=== PATIENT | male | born 1960 | race Caucasian/White ===

== ENCOUNTER 2023-04-05 08:20 | Outpatient (OUT) | payer BC, SELFPAY ==
[2023-04-05 08:49] LABS: Basophils Percent Auto 0.3 % (0.2-2.0); Eosinophils Absolute Auto 0.1 10^3/uL (0.0-0.7); Eosinophils Percent Auto 2.2 % (0.9-7.0); Hematocrit 44.4 % (42.0-54.0); Hemoglobin 14.2 g/dL (14.0-18.0); Immature Granulocytes Abs Auto 0.04 10^3/uL (0.00-0.03); Immature Granulocytes Pct Auto 0.7 % (0.0-0.5); Lymphocytes Absolute Auto 1.9 10^3/uL (1.2-3.8); Lymphocytes Percent Auto 32.2 % (20.5-60.0); Mean Corpuscular Hemoglobin 29.2 pg (25.9-34.0); Mean Corpuscular Volume 91.4 fL (80.0-94.0); Mean Platelet Volume 10.2 fL (9.5-13.5); Monocytes Absolute Auto 0.5 10^3/uL (0.3-0.8); Monocytes Percent Auto 8.9 % (1.7-12.0); Neutrophils Absolute Auto 3.3 10^3/uL (1.4-6.5); Neutrophils Percent Auto 55.7 % (43.0-75.0); Platelet Count 253 10^3/uL (150-450); Red Blood Count 4.86 10^6/uL (4.70-6.10); Red Cell Distribution Width 13.2 % (11.0-15.0); White Blood Count 5.8 10^3/uL (4.0-11.0)
[2023-04-05 09:03] LABS: Creatinine Urine Random 86.42 mg/dL (20.00-300.00); Microalbumin Urine Random <1.3 mg/dL (<=30.0)
[2023-04-05 09:38] LABS: Alanine Aminotransferase 23 U/L (16-63); Albumin Level 3.7 g/dL (3.4-5.0); Alkaline Phosphatase 68 U/L (46-116); Anion Gap 12.4; Aspartate Amino Transferase 15 U/L (15-37); BUN Creatinine Ratio 21.2; Bilirubin Total 0.4 mg/dL (0.2-1.0); Calcium 9.2 mg/dL (8.5-10.1); Carbon Dioxide 26.8 mmol/L (21.0-32.0); Chloride 103 mmol/L (98-107); Chol HDL Ratio 2.2; Cholesterol 142 mg/dL (<=200); Estimated GFR (African America >60 (>=60); Estimated GFR (Non-African Ame >60 (>=60); Globulin 3.6 g/dL; Glucose 140 mg/dL (74-106); HDL Cholesterol 66 mg/dL (40-60); Potassium 4.2 mmol/L (3.5-5.1); Sodium 138 mmol/L (136-145); Thyroid Stimulating Hormone 2.241 uIU/mL (0.358-3.740); Total Protein 7.3 g/dL (6.4-8.2); Triglycerides 35 mg/dL (<=150)
[2023-04-05 09:44] LABS: Prostate Specific Antigen Scrn 2.34 ng/mL (<=4.00)
== END 2023-04-05 08:21 | disposition home or self-care (01) ==
PROVIDERS: PCP Family Medicine; Visit Provider Family Medicine
DX: Z00.00 Encounter for general adult medical examination without abnormal findings (principal); E11.9 Type 2 diabetes mellitus without complications; Z12.5 Encounter for screening for malignant neoplasm of prostate
CPT/HCPCS: 36415; 80053; 80061; 82043; 82570; 84443; 85025; G0103

== ENCOUNTER 2024-04-16 08:21 | Outpatient (OUT) | payer BC, SELFPAY ==
--- OUTSIDE RECORDS SUMMARY | 2024-04-16 08:43 | XMS_ITS | CCD ---
Author Organization [facility] CliniSymi Care Team Providers Care Electrical Mechanic Name Role Phone Edenilson Edenison M Unavailable Unavailable Shai Champagne Unavailable Petznick DO, Martina Primary Care Provider Ihsan FALLON, Shai Unavailable [phone] Panchito Wilkinson MD Unavailable Shai Champagne MD Unavailable PETTHOM, DR JIMENES Attending Unavailable PETZNICK, DR JIMENES Consulting Unavailable PETZNICK, DR JIMENES Primary Care Unavailable PETZNICK, DR JIMENES Admitting Unavailable Petznick DO, Martina Primary Care Provider [phone] Shai Champagne MD Unavailable [phone] Panchito Wilkinson MD Unavailable PETZNICK, MARTINA Primary Care Unavailable AUGOSTINI, MARYBEL S Referring Unavailable PETZNICK, MARTINA Primary Care Unavailable AUGOSTINI, MARYBEL S Referring Unavailable AUGOSTINI, MARYBEL S Referring Unavailable PETZNICK, MARTINA Primary Care Unavailable PETZNICK, MARTINA Primary Care Unavailable AUGOSTINI, MARYBEL S Referring Unavailable Maribell BERMAN Attending Unavailable PETZNICK, MARTINA M Attending Unavailable PETZNICK, MARTINA M Attending Unavailable PETZNICK, MARTINA M Referring Unavailable PETZNICK, MARTINA M Referring Unavailable PETZNICK, MARTINA M Attending Unavailable Petznick, DO Martina Primary Care Provider Petthom, DO Martina Attending Provider MD Vicki Thurman Attending Provider MD Vicki Thurman Referring Provider Martina Eden Admitting Unavailable Petznick, Martina Primary Care Unavailable Petznick, Martina Attending Unavailable Vicki Thurman Attending Unavailable Vicki Thurman Referring Unavailable Martina Eden Primary Care Unavailable Vicki Thurman Admitting Unavailable Martina Eden DO Primary Care Provider VICKI THURMAN Attending Unavailable FAINAMARTINA CASTAÑEDA Primary Care Unavailable VICKI THURMAN Referring Unavailable VICKI THURMAN Attending Unavailable VICKI THURMAN Referring Unavailable MARTINA EDEN Primary Care Unavailable Martina Eden DO Unavailable [phone] Petthom Martina SEGURA Primary Care Provider [phone] Medications Current Medications Medication Drug Class(es) Dates Sig (Normalized) Sig (Original) apixaban 5 mg oral tablet (10 sources) Factor Xa Inhibitor Start: 02-28-2023 End: 01-12-2025 take 1 tablet by mouth in the morning apixaban (Eliquis) 5 MG tablet Indications: Paroxysmal atrial fibrillation (CMS/HCC) Take 1 tablet (5 mg) by mouth in the morning and 1 tablet (5 mg) before bedtime. 180 tablet 3 01/13/2024 01/12/2025 Active Start: 08-20-2021 take 1 tablet by ai th every twelve hours Eliquis 5 MG tablet Indications: Persistent atrial fibrillation TAKE 1 TABLET BY MOUTH EVERY 12 HOURS 180 tablet 2 08/20/2021 Active Start: 05-18-2021 take 1 tablet by ai th every twelve hours apixaban (Eliquis) 5 MG tablet Indications: Persistent atrial fibrillation Take 1 tablet by mouth every 12 hours. 180 tablet 0 05/18/2021 Active Start: 04-24-2017 take 1 tablet by ai th every twelve hours apixaban (ELIQUIS) 5 MG Tab tablet Indications: Persistent atrial fibrillation Take 1 tablet by mouth every 12 hours. 60 tablet 11 04/24/2017 Active Start: 01-20-2017 Apixaban (Eliq uis) 5 mg Tablet Active 1 PKG PO Twice daily January 20, 2017 12:00am Start: 01-20-2017 Apixaban (Eliq uis) 5 mg Tablet Active 1 PKG PO Daily January 20, 2017 12:00am ascorbic acid 500 mg chewabl e tablet (3 sources) Vitamin C ascorbic acid (V itamin C) 500 MG chewable tablet Chew 1 tablet 1 (one) time each day at the same time. Active take 1 tablet by mouth once neva y ascorbic acid 500 MG Tab take 500 mg by mouth daily. Active atorvastatin 40 mg oral tablet (11 sources) HMG-CoA Reductase Inhibitor Start: 01-20-2017 take 1 tablet by mouth in the morning atorvastatin (Lipitor) 40 MG tablet Indications: Hypercholesteremia (CMS/HCC) Take 1 tablet (40 mg) by mouth in the morning. 90 tablet 3 01/13/2024 Active Blood Glucose Monitoring Suppl (Contour Next Gen Monitor) w/Device kit (2 sources) Start: 08-23-2022 Blood Glucose Monitoring Suppl (Contour Next Gen Monitor) w/Device kit Apply 1 Device topically in the morning. 08/23/2022 Active empagliflozin 25 mg oral tablet (5 sources) Sodium-Glucose Cotransporter 2 Inhibitor Start: 07-29-2023 Jardiance 25 MG Indications: Diabetes mellitus without complication (CMS/HCC) TAKE 1 TABLET IN THE MORNING 90 tablet 3 07/29/2023 Active lisinopril 10 mg oral tablet (11 sources) Angiotensin Converting Enzyme Inhibitor Start: 01-20-2017 End: 01-12-2025 take 1 tablet by mouth once daily lisinopril 10 mg tablet Take 1 tablet (10 mg) by mouth once daily. 04/17/2023 Active take 10 mg by mouth once daily l isinopril 20 MG Tab take 10 mg by mouth daily. 0 Active metFORMIN hydrochloride 1000 mg oral tablet (11 sources) Biguanide Start: 01-20-2017 End: 02-14-2024 take 1 tablet by mouth twice daily metFORMIN (Glucophage) 1,000 mg tablet Take 1 tablet (1,000 mg) by mouth 2 times daily (morning and late afternoon). 02/14/2023 02/14/2024 Active Multiple Vitamin (multivitamin) capsule (2 sources) take 1 capsule by mouth once daily Multiple Vitamin (multivitamin) capsule Take 1 capsule by mouth Daily Active Ozempic 2 mg/dose (8 mg/3 mL) pen injector (2 sources) Start: 09-26-2022 inject 2 mg by subcutaneous injection every week Ozempic 2 mg/dose (8 mg/3 mL) pen injector Inject 2 mg under the skin once a week. 09/26/2022 Active pioglitazone 30 mg oral tablet (10 sources) Peroxisome Proliferator Receptor alpha Agonist, Peroxisome Proliferator Receptor gamma Agonist, Thiazolidinedione Start: 03-04-2023 End: 01-12-2025 take 1 tablet by mouth once daily pioglitazone (Actos) 30 MG tablet Indications: Diabetes mellitus without complication (CMS/HCC) Take 1 tablet (30 mg) by mouth Daily 90 tablet 3 01/13/2024 01/12/2025 Active take 1 tablet by mouth once neva y pioglitazone 30 MG Tab tablet Take 30 mg by mouth daily. 0 Active Pioglitazone HCl (ACTOS PO) take by mouth. Active 0.25 mg, 0.5 mg dose 1.5 ml semaglutide 1.34 mg/ml pen injector (5 sources) Semaglutide (OZEMPIC) 0.25 or 0.5 MG/DOSE Solution Pen-injector Inject under the skin once a week. 0 Active Semaglutide (Ozempic) 2 mg/dose (8 mg/3 mL) pen injector (1 source) Start: 2023 inject 2 mg by subcutaneous injection every week Semaglutide (Ozempic) 2 mg/dose (8 mg/3 mL) pen injector Active 2 MG SUBCUT every week December 05, 2023 12:00am Semaglutide, 2 MG/DOSE, (Ozempic, 2 MG/DOSE,) 8 MG/3ML solution pen-injector (2 sources) Start: 2023 End: 2024 Semaglutide, 2 MG/DOSE, (Ozempic, 2 MG/DOSE,) 8 MG/3ML solution pen-injector Indications: Diabetes mellitus without complication (CMS/HCC) Inject 2 mg under the skin every 7 (seven) days 9 mL 3 12/09/2023 12/08/2024 Active sildenafil 50 mg oral tablet (2 sources) Phosphodiesterase 5 Inhibitor Start: 2023 sildenafil (Viagra) 50 MG tablet Indications: Other male erectile dysfunction Take 1 tablet (50 mg) by mouth if needed for erectile dysfunction 30 tablet 1 05/29/2023 Active sotalol hydrochloride 80 mg oral tablet (3 sources) Antiarrhythmic Start: 2016 take 0.5 tablet by mouth twice daily sotalol 80 MG Tab tablet Take 0.5 tablets by mouth 2 times daily. 30 tablet 11 03/10/2017 Active Start: 01-20-2017 End: 12-05-2023 take 40 mg by mouth every twelve hours Sotalol Discontinued 40 MG PO Q12H January 20, 2017 12:00am December 05, 2023 11:32am Completed/Discontinued Medications Medication Drug Class(es) Dates Sig (Normalized) Sig (Original) canagliflozin 300 mg oral tablet (7 sources) Sodium-Glucose Cotransporter 2 Inhibitor Start: 01-20-2017 End: 12-05-2023 take 1 tablet by mouth once daily in the morning Canagliflozin (Invokana) 300 mg Tablet Discontinued 100 MG PO Every morning January 20, 2017 12:00am December 05, 2023 11:57am 3 ml liraglutide 6 mg/ml pen injector (3 sources) GLP-1 Receptor Agonist Start: 01-20-2017 End: 12-05-2023 Liraglutide (Victoza 2-Dewayne) 0.6 mg/0.1 mL (18 mg/3 mL) Pen Injector Discontinued 1 PKG SUBCUT Daily January 20, 2017 12:00am December 05, 2023 11:57am 24 hr metoprolol succinate 25 mg extended release oral tablet (7 sources) beta-Adrenergic Peterson Start: 11-14-2023 End: 03-26-2025 take 1 tablet by mouth once daily metoprolol succinate XL (Toprol-XL) 25 MG 24 hr tablet Indications: Sinus tachycardia Take 1 tablet (25 mg) by mouth Daily 90 tablet 3 03/09/2024 03/26/2024 Discontinued (Reorder) Problems Active Problems Problem Classification Problem Date Documented Da te Episodic/Chronic Cardiac dysrhythmias (20 sources) Persistent atrial fibrillation; Translations: [Atrial fibrillation] Onset: 02-21-2015 Resolved: 03-02-2023 04-20-2015 Chronic Cardiac dysrhythmias (3 sources) Tachycardia, unspecified; Translations: [Sinus tachycardia] Onset: 11-27-2023 03-26-2024 Episodic Diabetes mellitus without complication (10 sources) Diabetes mellitus; Translations: [Type 2 diabetes mellitus without complications] Onset: 02-21-2015 04-20-2015 Chronic Disorders of lipid metabolism (15 sources) Hyperlipidemia; Translations: [Hyperlipidemia, unspecified] Onset: 02-21-2015 04-20-2015 Chronic Essential hypertension (10 sources) Essential hypertension; Translations: [Essential (primary) hypertension] Onset: 03-02-2023 01-30-2024 Chronic Other aftercare (4 sources) Drug therapy finding; Translations: [alf (current) use of anticoagulants] Onset: 12-05-2023 01-30-2024 Episodic Other aftercare (2 sources) terminal gauger (current) use of anticoagulants; Translations: [alf (current) use of anticoagulants] Onset: 12-05-2023 Episodic Other nutritional; endocrine; and metabolic disorders (4 sources) Body mass index 30+ - obesity; Translations: [Body mass index (BMI) 35.0-35.9, adult] Onset: 12-05-2023 01-30-2024 Chronic Other nutritional; endocrine; and metabolic disorders (2 sources) Body mass index (BMI) 35.0-35.9, adult; Translations: [Body mass index (BMI) 35.0-35.9, adult] Onset: 12-05-2023 Chronic Other nutritional; endocrine; and metabolic disorders (4 sources) Severe obesity; Translations: [Class 2 severe obesity due to excess calories with serious comorbidity and body mass index (BMI) of 35.0 to 35.9 in adult ([facility])] Onset: 03-02-2023 03-29-2024 Chronic Other screening for suspected conditions (not mental disorders or infectious disease) (5 sources) Encounter for screening for malignant neoplasm of prostate; Translations: [Patient encounter status] Onset: 03-13-2022 04-02-2023 Episodic Residual codes; unclassified (4 sources) Obstructive sleep apnea syndrome; Translations: [Obstructive sleep apnea (adult) (pediatric)] Onset: 03-02-2023 03-26-2024 Chronic Residual codes; unclassified (4 sources) Never smoked any substance; Translations: [Other specified health status] Onset: 12-05-2023 01-30-2024 Episodic Residual codes; unclassified (2 sources) Other specified health status; Translations: [Other specified health status] Onset: 12-05-2023 Episodic Past or Other Problems Problem Classification Problem Date Documented Date Episodic/Chronic Other circulatory disease (5 sources) H/O: atrial fibrillation; Translations: [Other specified postprocedural states] Onset: 03-03-2015 04-20-2015 Episodic Results Test Name Value Interpretation Reference Range Facility HbA1c (Bld) [Mass fraction]o n 03-26-2024 Interpretation and review of laboratory results Normal [facility] - Hematology and Cell countson 03-26-2024 HbA1c (Bld) [Mass fraction] 7.4 % [facility] ECG 12 Leadon 01-30-2024 Normal sinus rhythm with borderline first-degree AV block [facility] Work Phone: Carbon dioxide, total [Moles /volume] in Serum or PlasmaOrdered By: Vicki Thurman on 12-05-2023 CO2 [Moles/Vol] 26.4 mmol/L Normal 21.0-31.0 [facility] Comment on above: Performed By: #### L YTES #### [facility] [address] [place] [address] [place] Chloride [Moles/volume] in S teresa or PlasmaOrdered By: Vicki Thurman on 12-05-2023 Chloride [Moles/Vol] 105 mmol/L Normal 98-107 [facility] Comment on above: Performed By: #### L YTES #### [facility] [address] [place] [address] ECG 12 Leadon 12-05-2023 Atrial flutter with 221 AV block [facility] Work Phone: ECG 12 lead ECGon 12-05-2023 ECG 12 lead ECG [facility] [place] [address] Electrocardiograph Report Signed Patient: Clark Spangler MR#: [id number] 8 : 1960 Acct:[id number] Age/Sex: 63 / M ADM Date: 12/05/23 Loc: Room: Type: [facility] Attending Dr: Vicki Thurman MD Ordering Provider: Vicki Thurman MD Date of Service: 12/05/23 ECG/ECG 12 lead ECG: Pre-cardioversion rhythm assessment Copies to: Test Reason : Blood Pressure : 123/82 mmHG Vent. Rate : 82 BPM Atrial Rate : 82 BPM P-R Int : 264 ms QRS Dur : 74 ms QT Int : 332 ms P-R-T Axes : 69 58 70 degrees QTcB Int : 387 ms Sinus rhythm with 1st degree AV block Otherwise normal ECG When compared with ECG of 05-Dec-2023 11:55, (Unconfirmed) AL interval has increased Vent. rate has decreased by 52 bpm Confirmed by Alfredo Chance ([id number]) on 12/06/2023 3:39:03 PM Referred By: Vicki Thurman Electronically Signed By: Alfredo Chance Transcribed By: MUS Signed By Alfredo Chance MD 12/06/23 2782 Normal [facility] ECG 12 lead ECG [facility] [place] [address] Electrocardiograph Report Signed Patient: Clark Spangler MR#: [id number] 8 : 1960 Acct:[id number] Age/Sex: 63 / M ADM Date: 11/27/23 Loc: Room: Type: [facility] Attending Dr: Martina Eden DO Ordering Provider: Vicki Thurman MD Date of Service: 12/05/23 ECG/ECG 12 lead ECG: Pre-cardioversion rhythm assessment Copies to: Test Reason : Blood Pressure : */* mmHG Vent. Rate : 134 BPM Atrial Rate : 134 BPM P-R Int : 104 ms QRS Dur : 68 ms QT Int : 290 ms P-R-T Axes : * 61 61 degrees QTcB Int : 433 ms Narrow complex tachycardia Abnormal ECG When compared with ECG of 27-Nov-2023 12:36, (Unconfirmed) No significant change was found Confirmed by Alfredo Chance ([id number]) on 12/06/2023 3:41:07 PM Referred By: Electronically Signed By: Alfredo Chance Transcribed By: MUS Signed By Alfredo Chance MD 12/06/23 4162 Normal [facility] Potassium [Moles/volume] in Serum or PlasmaOrdered By: Vicki Thurman on 12-05-2023 Potassium [Moles/Vol] 4.2 mmol/L Normal 3.5-5.1 [facility] Comment on above: Performed By: #### L CINDI #### [facility] [address] [place] [address] Serum or plasma anion gap de terminationOrdered By: Vicki Thurman on 12-05-2023 Anion gap [Moles/Vol] 11.8 mmol/L Normal 6.0-15.0 [facility] Comment on above: Result Comment: PERF ORMED BY: [place] [address] PATHOLOGIST [employer] ABRAHAN SPRINGER M.D. Performed By: #### L CINDI #### [facility] [address] [place] [address] Sodium [Moles/volume] in Ser um or PlasmaOrdered By: Vicki Thurman on 12-05-2023 Sodium [Moles/Vol] 139 mmol/L Normal 136-145 [facility] Comment on above: Performed By: #### L CINDI #### [facility] [address] [place] [address] Registrationon 02-11-2023 Registration [id number] #1.00TIFF Normal [facility] In office Testingon 02-11-20 23 In office Testing [id number] 1#1.00TIFF Normal [facility] In office Testingon 06-28-19 23 In office Testing [id number] 2#1.00CD:127 Normal [facility] DEVICE EVALUATION (SCANNED)o n 04-07-2022 [facility] Radiology Study observation (narrative) [facility] CBC AUTO DIFFon 03-09-2022 BASO # 0.0 103/ul Normal 0.0-0.1 [facility] Comment on above: Performed By: #### C BC #### [facility] [address] [address] [address] Vic Solo Basophils/100 WBC (Bld) 0.8 % Normal 0.2-2.0 [facility] Comment on above: Performed By: #### C BC #### [facility] [address] [place] [address] Dr. Vic Solo EO # 0.2 103/ul Normal 0.0-0.7 [facility] Comment on above: Performed By: #### C BC #### [facility] [address] [place] [address] Dr. Vic Solo Eosinophils/100 WBC (Bld) 3.7 % Normal 0.9-7.0 [facility] Comment on above: Performed By: #### C BC #### [facility] [address] [place] [address] Dr. iVc Solo Erythrocyte distribution width (RBC) [Ratio] 13.2 % Normal 11.0-15.0 [facility] Comment on above: Performed By: #### C BC #### [facility] [address] [place] [address] Dr. Vic Solo Hematocrit (Bld) [Volume fraction] 44.7 % Normal 42.0-54.0 [facility] Comment on above: Performed By: #### C BC #### [facility] [address] [place] [address] Dr. Vic Solo Hemoglobin (Bld) [Mass/Vol] 14.7 g/dL Normal 14.0-18.0 [facility] Comment on above: Performed By: #### C BC #### [facility] [address] [place] [address] Dr. Vic Solo IG # 0.02 10e3/ul Normal 0.00-0.03 [facility] Comment on above: Performed By: #### C BC #### [facility] [address] [place] [address] Dr. Vic Solo IG % 0.4 % Normal 0.0-0.5 [facility] Comment on above: Performed By: #### C BC #### [facility] [address] [place] [address] Dr. Vic Solo LYMPH # 1.9 103/ul Normal 1.2-3.8 [facility] Comment on above: Performed By: #### C BC #### [facility] [address] [place] [address] Dr. Vic Solo Lymphocytes/100 WBC (Bld) 36.8 % Normal 20.5-60.0 [facility] Comment on above: Performed By: #### C BC #### [facility] [address] [place] [address] Dr. Vic Solo MANUAL DIFF REQ NO Normal [facility] Comment on above: Performed By: #### C BC #### [facility] [address] [place] [address] Dr. Vic Solo MCH (RBC) [Entitic mass] 29.1 pg Normal 25.9-34.0 [facility] Comment on above: Performed By: #### C BC #### [facility] [address] [place] [address] Dr. Vic Solo MCHC (RBC) [Mass/Vol] 32.9 g/dL Normal 29.9-35.2 [facility] Comment on above: Performed By: #### C BC #### [facility] [address] [place] [address] Dr. Vic Solo MCV (RBC) [Entitic vol] 88.5 fL Normal 80.0-94.0 [facility] Comment on above: Performed By: #### C BC #### [facility] [address] [place] [address] Dr. Vic Solo MONO # 0.5 103/ul Normal 0.3-0.8 [facility] Comment on above: Performed By: #### C BC #### [facility] [address] [place] [address] Dr. Vic Solo Monocytes/100 WBC (Bld) 9.1 % Normal 1.7-12.0 [facility] Comment on above: Performed By: #### C BC #### [facility] [address] [place] [address] Dr. Vic Solo NEUT # 2.5 103/ul Normal 1.4-6.5 [facility] Comment on above: Performed By: #### C BC #### [facility] [address] [place] [address] Dr. Vic Solo Neutrophils/100 WBC (Bld) 49.2 % Normal 43.0-75.0 [facility] Comment on above: Performed By: #### C BC #### [facility] [address] [place] [address] Dr. Vic Solo Platelet mean volume (Bld) [Entitic vol] 10.2 fL Normal 9.5-13.5 [facility] Comment on above: Performed By: #### C BC #### [facility] [address] [place] [address] Dr. Vic Solo PLT 226 103/ul Normal 150-450 [facility] Comment on above: Performed By: #### C BC #### [facility] [address] [place] [address] Dr. Vic oSlo RBC 5.05 106/ul Normal 4.70-6.10 [facility] Comment on above: Performed By: #### C BC #### [facility] [address] [place] [address] Dr. Vic Solo WBC 5.1 103/ul Normal 4.0-11.0 [facility] Comment on above: Performed By: #### C BC #### [facility] [address] [place] [address] Dr. Vic Solo LIPID PROFILEon 03-09-2022 CHOL-HDL RATIO NORM SEE BELOW Normal [facility] Comment on above: Result Comment: 3.3 - 4.4 LOW RISK 4.4 - 7.1 AVERAGE RISK 7.1 - 11.0 MODERATE RISK >11.0 HIGH RISK Performed By: #### L IPID, CMP #### [facility] [address] [place] [address] Dr. Vic Solo Cholesterol [Mass/Vol] 152 mg/dL Normal <=200 [facility] Comment on above: Performed By: #### L IPID, CMP #### [facility] [address] [address] [address] Vic Solo Cholesterol in HDL [Mass/Vol] 74 mg/dL Critically high 40-60 [facility] Comment on above: Performed By: #### L IPID, CMP #### [facility] [address] [address] [address] Vic Solo Cholesterol in LDL [Mass/Vol] 71.4 mg/dL Normal [facility] Comment on above: Performed By: #### L IPID, CMP #### [facility] [address] [address] [address] Vic Solo Cholesterol.total/Choles terol in HDL [Mass ratio] 2.1 {ratio} Normal [facility] Comment on above: Performed By: #### L IPID, CMP #### [facility] [address] [place] [address] Dr. Vic Solo HDL NORMAL > or = 60 mg/dl - LOW CARDIOVASCULAR RISK <40 mg/dl - HIGH CARDIOVASCULAR RISK Normal [facility] Comment on above: Performed By: #### L IPID, CMP #### [facility] [address] [address] [address] Vic Solo LDL CALC NORMAL SEE BELOW Normal [facility] Comment on above: Result Comment: <100 mg/dl OPTIMAL 100 - 129 mg/dl NEAR OR ABOVE OPTIMAL 130 - 159 mg/dl BORDERLINE HIGH 160 - 189 mg/dl HIGH >190 mg/dl VERY HIGH Performed By: #### L IPID, CMP #### [facility] [address] [address] [address] Vic Solo Triglyceride [Mass/Vol] 33 mg/dL Normal <=150 T [facility] Comment on above: Performed By: #### L IPID, CMP #### [facility] [address] [place] [address] Dr. Vic Solo VLDL CALC 6.6 mg/dL Normal [facility] Comment on above: Performed By: #### L IPID, CMP #### [facility] [address] [address] [address] Vic Solo MICROALB CREAT RATIO RANDOMo n 11-19-2022 mALB <1.3 Normal <=30.0 [facility] Comment on above: Performed By: #### M CRR #### [facility] [address] [address] [address] Vic Solo MALB CR RATIO 14.0 mg/g Normal 0.0-29.9 [facility] Comment on above: Performed By: #### M CRR #### [facility] [address] [address] [address] Vic Solo MALB CR RATIO RANGE SEE BELOW Normal [facility] Comment on above: Result Comment: NO M ICROALBUMINURIA 0-29 MG/G CLINICAL MICROALBUMINURIA 30-300 MG/G MACROALBUMINURIA >300 MG/G Performed By: #### M CRR #### [facility] [address] [place] [address] Dr. Vic Solo URINE CREAT 93.11 mg/dL Normal 20.00-300.00 [facility] Comment on above: Performed By: #### M CRR #### [facility] [address] [place] [address] Dr. Vic Solo PROF 14(COMP METB)on 022 Albumin [Mass/Vol] 4.0 g/dL Normal 3.4-5.0 [facility] Comment on above: Performed By: #### L IPID, CMP #### [facility] [address] [place] [address] Dr. Vic Solo Albumin/Globulin [Mass ratio] 1.3 {ratio} Normal [facility] Comment on above: Performed By: #### L IPID, CMP #### [facility] [address] [place] [address] Dr. Vic Solo ALP [Catalytic activity/Vol] 66 U/L Normal 46-116 [facility] Comment on above: Performed By: #### L IPID, CMP #### [facility] [address] [place] [address] Dr. Vic Solo ALT [Catalytic activity/Vol] 17 U/L Normal 16-63 [facility] Comment on above: Performed By: #### L IPID, CMP #### [facility] [address] [address] [address] Vic Solo Anion gap [Moles/Vol] 9.1 mmol/L Normal [facility] Comment on above: Performed By: #### L IPID, CMP #### [facility] [address] [address] [address] Vic Solo AST [Catalytic activity/Vol] 13 U/L Critically low 15-37 [facility] Comment on above: Performed By: #### L IPID, CMP #### [facility] [address] [address] [address] Vic Solo Bilirubin [Mass/Vol] 0.4 mg/dL Normal 0.2-1.0 [facility] Comment on above: Performed By: #### L IPID, CMP #### [facility] [address] [address] [address] Vic Solo Calcium [Mass/Vol] 9.0 mg/dL Normal 8.5-10.1 [facility] Comment on above: Performed By: #### L IPID, CMP #### [facility] [address] [address] [address] Vic Solo Chloride [Moles/Vol] 104 mmol/L Normal 98-107 [facility] Comment on above: Performed By: #### L IPID, CMP #### [facility] [address] [address] [address] Vic Solo CO2 [Moles/Vol] 27.0 mmol/L Normal 21.0-32.0 [facility] Comment on above: Performed By: #### L IPID, CMP #### [facility] [address] [address] [address] Vic Solo Creatinine [Mass/Vol] 0.73 mg/dL Normal 0.70-1.30 [facility] Comment on above: Performed By: #### L IPID, CMP #### [facility] [address] [address] [address] Vic Solo EGFR-AF ESTONIAN >60 Normal >=60 [facility] Comment on above: Performed By: #### L IPID, CMP #### [facility] [address] [address] [address] Vic Solo EGFR-NON AF ESTONIAN >60 Normal >=60 [facility] Comment on above: Performed By: #### L IPID, CMP #### [facility] [address] [address] [address] Vic Solo Globulin (S) [Mass/Vol] 3.1 g/dL Normal [facility] Comment on above: Performed By: #### L IPID, CMP #### [facility] [address] [address] [address] Vic Solo Glucose [Mass/Vol] 136 mg/dL Critically high 74-106 [facility] Comment on above: Performed By: #### L IPID, CMP #### [facility] [address] [address] [address] Vic Solo Potassium [Moles/Vol] 4.1 mmol/L Normal 3.5-5.1 [facility] Comment on above: Performed By: #### L IPID, CMP #### [facility] [address] [address] [address] Vic Solo Protein [Mass/Vol] 7.1 g/dL Normal 6.4-8.2 [facility] Comment on above: Performed By: #### L IPID, CMP #### [facility] [address] [address] [address] Vic Solo Sodium [Moles/Vol] 136 mmol/L Normal 136-145 [facility] Comment on above: Performed By: #### L IPID, CMP #### [facility] [address] [address] [address] Vic Solo Urea nitrogen [Mass/Vol] 19.0 mg/dL Critically high 7.0-18 .0 [facility] Comment on above: Performed By: #### L IPID, CMP #### [facility] [address] [address] [address] Vic Solo Urea nitrogen/Creatinine [Mass ratio] 26.0 mg/mg Normal [facility] Comment on above: Performed By: #### L IPID, CMP #### [facility] [address] [place] [address] Dr. Vic Solo DEVICE EVALUATION (SCANNED)o n 01-07-2022 [facility] DEVICE EVALUATION (SCANNED)o n 07-08-2021 [facility] Vital Signs Date Time Vital Sign Value Performing Clinician Facility 03-26-2024 15:26-0500 Body height 190.5 cm Martina Petznick DO Work Phone: [facility] 03-26-2024 15:26-0500 Body mass index (BMI) [Ratio] 35.97 kg/m2 Martina Petznick DO Work Phone: [facility] 03-26-2024 15:26-0500 Body temperature 97.39 [degF] Martina Petznick DO Work Phone: [facility] 03-26-2024 15:26-0500 Body weight 130.54 kg Martina Petznick DO Work Phone: [facility] 03-26-2024 15:26-0500 Diastolic blood pressure 78 mm[Hg] Martina Petznick DO Work Phone: [facility] 03-26-2024 15:26-0500 Heart rate 85 /min Martina Petznick DO Work Phone: [facility] 03-26-2024 15:26-0500 SaO2% (BldA) [Mass fraction] 96 % Martina Petznick DO Work Phone: [facility] 03-26-2024 15:26-0500 Systolic blood pressure 122 mm[Hg] Martina Petznick DO Work Phone: [facility] 01-30-2024 10:14-0400 Diastolic blood pressure 78 mm[Hg] Vicki Thurman MD Work Phone: [facility] 01-30-2024 10:14-0400 Systolic blood pressure 120 mm[Hg] Vicki Thurman MD Work Phone: [facility] 01-30-2024 09:43-0400 Body height 190.5 cm Vicki Thurman MD Work Phone: [facility] 01-30-2024 09:43-0400 Body mass index (BMI) [Ratio] 35.87 kg/m2 Vicki Thurman MD Work Phone: [facility] 01-30-2024 09:43-0400 Body weight 130.18 kg Vicki Thurman MD Work Phone: [facility] 01-30-2024 09:43-0400 Heart rate 81 /min Vicki Thurman MD Work Phone: [facility] 12-05-2023 12:18-0400 SaO2% (BldA) [Mass fraction] 98 % DO Martina Petznick Work Phone: [facility] 12-05-2023 11:58-0400 SaO2% (BldA) [Mass fraction] 98 % DO Martina Petznick Work Phone: [facility] 12-05-2023 09:50-0400 Body height 190.5 cm Vicki Thurman MD Work Phone: [facility] 12-05-2023 09:50-0400 Body mass index (BMI) [Ratio] 35.87 kg/m2 Vicki Thurman MD Work Phone: [facility] 12-05-2023 09:50-0400 Body weight 130.18 kg Vicki Thurman MD Work Phone: [facility] 12-05-2023 09:50-0400 Diastolic blood pressure 80 mm[Hg] Vicki Thurman MD Work Phone: [facility] 12-05-2023 09:50-0400 Heart rate 135 /min Vicki Thurman MD Work Phone: [facility] 12-05-2023 09:50-0400 Systolic blood pressure 118 mm[Hg] Vicki Thurman MD Work Phone: [facility] Encounters Encounter Date Encounter Type Care Provider Facility Start: 03-26-2024 End: 03-26-2024 Office outpatient visit 25 minutes Martina Eden DO Work Phone: [facility] Comment on above: Essential hypertensi on (CMS/HCC) (Primary Dx); Type 2 diabetes mellitus without complication, without long-term current use of insulin (CMS/HCC); Sinus tachycardia; Paroxysmal atrial fibrillation (CMS/HCC); CRESCENCIO (obstructive sleep apnea); Pure hypercholesterolemia (CMS/HCC); Preventative health care; Screening for prostate cancer; Class 2 severe obesity due to excess calories with serious comorbidity and body mass index (BMI) of 35.0 to 35.9 in adult (CMS/HCC) Start: 03-26-2024 End: 03-26-2024 Patient encounter status Martina Eden DO Work Phone: [facility] Start: 01-30-2024 End: 01-30-2024 Office outpatient visit 25 minutes Vicki Thurman MD Work Phone: [facility] Comment on above: Atrial flutter, unsp ecified type (Multi); Hyperlipidemia, unspecified hyperlipidemia type; Essential hypertension; Anticoagulated; BMI 35.0-35.9,adult; Never smoked any substance Start: 01-30-2024 End: 01-30-2024 ambulatory [facility] Start: 12-05-2023 End: 12-05-2023 Admission to same day surgery center DO Martina Eden Work Phone: [facility] Work Phone: Start: 12-05-2023 End: 12-05-2023 ambulatory DO Martina Eden Work Phone: [facility] Work Phone: Start: 12-05-2023 End: 12-05-2023 Office consultation new/estab patient 80 min Vicki Thurman MD Work Phone: [facility] Comment on above: Atrial flutter, unsp ecified type (Multi); Essential hypertension; Hyperlipidemia, unspecified hyperlipidemia type; Anticoagulated; BMI 35.0-35.9,adult; Never smoked any substance Start: 12-05-2023 End: 12-05-2023 ambulatory [facility] Start: 11-27-2023 End: 11-27-2023 Patient encounter procedure DO Martina Petthom Work Phone: [facility] Work Phone: Start: 11-27-2023 End: 11-27-2023 ambulatory DO Martina Eden Work Phone: [facility] Work Phone: Start: 11-14-2023 End: 11-14-2023 ambulatory MARTINA Engel PETSAULOICK Not Available Start: 11-14-2023 End: 11-14-2023 ambulatory MARTINA M PETZNICK Not Available Start: 09-18-2023 End: 09-18-2023 ambulatory MARTINA M PETZNICK Not Available Start: 02-28-2023 End: 02-28-2023 ambulatory MARTINA M PETZNICK Not Available Start: 02-10-2023 End: 02-11-2023 ambulatory Maribell BERMAN [facility] Start: 06-18-2022 ambulatory MARTINA EDEN Facili ty:[facility] Start: 04-07-2022 ambulatory MARTINA EDEN Facili ty:[facility] Start: 04-07-2022 End: 04-07-2022 Subsequent hospital visit by physician [facility] Check Work Phone: [facility] Start: 03-13-2022 Encounter for genera l adult medical examination without abnormal findings DR MARTINA EDEN [facility] Start: 03-09-2022 End: 03-10-[address] MARTINA EDEN Facility: Start: 03-09-2022 End: 11-20-2022 Encounter for general adult medical examination without abnormal findings DR MARTINA EDEN Facility:[facility] Start: 01-07-2022 End: 01-07-2022 Subsequent hospital visit by physician [facility] Remote Device Check Work Phone: [facility] Comment on above: No Show Start: 01-07-2022 ambulatory MARTINA EDEN Facili ty:[facility] Start: 10-08-2021 ambulatory MARYBEL MCKENNA Facil ity:[facility] Start: 07-08-2021 End: 07-08-2021 Subsequent hospital visit by physician [facility] Remote Device Check Work Phone: [facility] Comment on above: No Show Start: 07-08-2021 End: 07-08-2021 Subsequent hospital visit by physician Marybel Mckenna MD Work Phone: [facility] Start: 03-08-2018 End: 03-08-2018 Patient encounter procedure [facility] Work Phone: [facility] Comment on above: No Show Procedures Date Procedure Procedure Detail Performing Clinician Start: 03-26-2024 Hemoglobin glycosyla esther a1c Martina Eden DO Work Phone: Start: 01-30-2024 Ecg routine ecg w/le ast 12 lds w/i&r Vicki Thurman MD Work Phone: Start: 12-05-2023 Ecg routine ecg w/le ast 12 lds w/i&r Vicki Thurman MD Work Phone: Start: 04-07-2022 DEVICE EVALUATION Other Other Start: 03-09-[address] YRN EDEN Comment on above: Performed By: #### P [facility] #### [facility] [address] [place] [address] Dr. Vic Solo Start: 01-07-2022 DEVICE EVALUATION Other Other Start: 07-08-2021 DEVICE EVALUATION Other Other Start: 03-08-2018 End: 03-08-2018 DEVICE EVALUATION Martina Eden Work Phone: Start: 01-20-2017 Colonoscopy Vicki sheldon MD Work Phone: Plan of Treatment Date Care Activity Detail Author Start: 01-20-2027 Screening for malign ant neoplasm of colon [facility] Start: 09-17-2024 End: 09-17-2024 Patient encounter procedure 09/17/2024 10:20 AM EDT Office Visit [place] [address] [place] [phone] Vicki Thurman MD [address] [facility] [address] [place] [address] [facility] Start: 07-30-2024 End: 07-30-2024 Patient encounter procedure 07/30/2024 3:30 PM EDT Office Visit [facility] [address] [place] [address] Martina Eden DO [address] [place] [address] [facility] Start: 06-24-2024 Hemoglobin A1c measurement Diabetes: Hemoglobin A1C [facility] Start: 04-05-2024 Urine screening for protein Diabetes: Urine Protein Screening [facility] Start: 03-26-2024 End: 03-26-2025 Prostate specific Ag [Mass/volume] in Serum or Plasma PSA Lab Routine Screening for prostate cancer Expected: 03/26/2024 (Approximate), Expires: 03/26/2025 [facility] Comment on above: Expected: 03/26/2024 (Approximate), Expires: 03/26/2025 Start: 12-21-2023 COVID-19 Vaccine ( season) COVID-19 Vaccine () [facility] Start: 12-21-2023 Influenza vaccination Influenza Vacc ine (#1) [facility] Start: 12-05-2023 [facility] Start: 12-05-2023 End: 12-04-2025 Cardioversion External Cardioversion External Cardiac Services Routine Atrial flutter, unspecified type (Multi) Expected: 12/05/2023 (Approximate), Expires: 12/04/2025 [facility] Work Phone: Comment on above: Expected: 12/05/2023 (Approximate), Expires: 12/04/2025 Start: 04-17-2023 Glaucoma screening Diabetes: R etinopathy Screening [facility] Start: 12-20-2022 COVID-19 Vaccine ( season) COVID-19 Vaccine ( season) [facility] Start: 2022 RSV patient s and/or patients aged 60+ years (1 - 1-dose 60+ series) RSV patients and/or patients aged 60+ years (1 - 1-dose 60+ series) [facility] Start: 12-20-2021 Influenza vaccination [facility] Start: 07-30-2021 COVID-19 VACCINE (3 - Booster for Joanna series) COVID-19 VACCINE (3 - Booster for Joanna series) [facility] Start: 05-26-2021 COVID-19 VACCINE (3 - Booster for Joanna series) COVID-19 VACCINE (3 - Booster for Joanna series) [facility] Start: 12-20-2020 Influenza vaccination INFLUENZA VACC INE (#1) [facility] Start: 07-19-2018 End: 07-19-2018 Ambulatory 07/19/2018 Appointment Cardiovascular Medicine Marybel Mckenna MD [address] [place] [phone] [facility] Start: 06-14-2018 End: 06-14-2018 Ambulatory 06/14/2018 Appointment Cardiovascular Marybel Guajardo MD [address] [place] [phone] [facility] Start: 05-10-2018 End: 05-10-2018 Ambulatory 05/10/2018 Appointment Cardiovascular Marybel Guajardo MD [address] [place] [address] [facility] Start: 04-05-2018 End: 04-05-2018 Ambulatory 04/05/2018 Appointment Cardiovascular Medicine Marybel Mckenna MD [address] [place] [address] [facility] Start: 12-20-2017 Influenza vaccination INFLUENZA VACC INE (#1) [facility] Work Phone: Start: 07-26-2015 PNEUMOCOCCAL VACCINE SERIES (2 - PCV) PNEUMOCOCCAL VACCINE SERIES (2 - PCV) [facility] Start: 2012 Prostate specific antigen measurement PROSTATE CANCER SCREENING DISCUSSION [facility] Start: 2012 Protein mass conc COLON CANCER SCREENING DISCUSSION [facility] Work Phone: Start: 2012 Zoster vaccine hzv l geo for subcutaneous use ZOSTER (SHINGLES) VACCINE (1 of 2) [facility] Start: 2007 Colonoscopy COLORECTAL CAN CER SCREENING DISCUSSION [facility] Start: 2007 Screening for malign ant neoplasm of colon COLORECTAL CANCER SCREENING DISCUSSION [facility] Start: 2002 Fasting lipid profile LIPID SCREENIN G [facility] Start: 2002 Lipid panel LIPID SCREENING [facility] Start: 1984 DTaP/Tdap/Td Vaccine s (1 - Tdap) DTaP/Tdap/Td Vaccines (1 - Tdap) [facility] Start: 1981 Third diphtheria, tetanus and acellular pertussis (DTaP) vaccination TDAP (ADULT) [facility] Start: 1980 Diabetes mellitus screening Diabetes Screening [facility] Start: 1980 Hepatitis C screening Hepatitis C Sc [facility] Start: 1980 Tetanus vaccination TETANUS [facility] Start: 1977 HIV screening HIV SCREENING DISCUSSI ON [facility] Start: 1975 HIV screening HIV SCREENING DISCUSSI ON [facility] Work Phone: Start: 1968 PNEUMOCOCCAL VACCINE SERIES (1 - PCV) PNEUMOCOCCAL VACCINE SERIES (1 - PCV) [facility] Start: 1968 PNEUMOCOCCAL VACCINE SERIES (1 of 2 - PPSV23) PNEUMOCOCCAL VACCINE SERIES (1 of 2 - PPSV23) [facility] Start: 1963 MMR Vaccines (1 of 1 - Standard series) MMR Vaccines (1 of 1 - Standard series) [facility] Start: 1962 Hepatitis C antibody , confirmatory test HEPATITIS C VIRUS SCREENING [facility] Start: 1962 Hepatitis C screening HEPATITI S C VIRUS SCREENING [facility] Start: 1962 HIV screening HIV Screening [facility] Start: 1962 Lipid panel Lipid Panel [facility] Start: 1962 Screening for malign ant neoplasm of colon [facility] Start: 1962 Tetanus vaccination TETANUS [facility] Start: 1962 Yearly Adult Physical Yearly Adult P hysical [facility] CBC W Auto Different ial panel - Blood CBC and differential Lab Routine Preventative health care Ordered: 03/26/2024 [facility] Comment on above: Ordered: 03/26/2024 Comprehensive metabo lic 2000 panel - Serum or Plasma Comprehensive metabolic panel Lab Routine Preventative health care Ordered: 03/26/2024 [facility] Work Phone: Comment on above: Ordered: 03/26/2024 DEVICE EVALUATION DEVICE EVALUAT ION Routine 03/08/2018 12:09 PM EST [facility] Work Phone: Lipid 1996 panel - Serum or Plasma Lipid panel Lab Routine Preventative health care Ordered: 03/26/2024 [facility] Comment on above: Ordered: 03/26/2024 Microalbumin/Creatin ine panel in random Urine Microalbumin / creatinine urine ratio Lab Routine Type 2 diabetes mellitus without complication, without long-term current use of insulin (CMS/HCC) Ordered: 03/26/2024 [facility] Comment on above: Ordered: 03/26/2024 Patient Education Know your [facility] Work Phone: Thyrotropin [Units/volume] in Serum or Plasma TSH Lab Routine Preventative health care Ordered: 03/26/2024 [facility] Comment on above: Ordered: 03/26/2024 Immunizations Immunization Date Immunization Notes Care Provider Marcos jaime 01-19-2022 Influenza, injectabl e, Madin Alexander Canine Kidney, preservative free, quadrivalent Martina Petznick DO Work Phone: [facility] 01-19-2022 zoster vaccine recombinant Martina Petznick DO Work Phone: [facility] 01-19-2022 influenza virus vacc ine, unspecified formulation [facility] Work Phone: [facility] 01-19-2022 zoster vaccine, unspecified formulation [facility] Work Phone: [facility] 11-13-2021 zoster vaccine recombinant Martina Petznick DO Work Phone: [facility] 02-22-2019 influenza, injectabl e, madin alexander canine kidney, preservative free Martina Petznick DO Work Phone: [facility] 02-22-2019 influenza virus vacc ine, unspecified formulation [facility] Work Phone: [facility] 03-03-2015 influenza, seasonal, injectable; Translations: [INFLUENZA VACCINE, TRIVALENT] [facility] Remote Device Check [facility] 03-03-2015 influenza virus vacc ine, unspecified formulation [facility] Remote Device Check [facility] Work Phone: 02-19-2015 seasonal influenza, intradermal, preservative free Martina Petznick DO Work Phone: [facility] 07-25-2014 pneumococcal polysaccharide vaccine, 23 valent Martina Petznick DO Work Phone: [facility] Payers Date Payer Category Payer Self-pay [id number] 2022 [facility] [id number] 2022 Unknown [id number] 2021 Unknown [id number] 1962 Unknown [id number] [id number]. 593 1962 Unknown [id number] [id number]. 594 1962 Unknown [id number] 2.16.840.1.451102.3.579.2. 594 1962 Unknown [id number] 2.16.840.1.312123.3.579.2. 594 1962 Unknown [id number] 2.16.840.1.345473.3.579.2. 594 1962 Unknown [id number] 2.16.840.1.520033.3.579.2. 1259 1962 Unknown [id number] 2.16.840.1.530191.3.579.2. 1259 1962 Unknown [id number] 2.16.840.1.800156.3.579.2. 1259 1962 Unknown [id number] 2.16.840.1.793860.3.579.2. 1259 1962 Unknown [id number] 2..840.1.537270.3.579.2. 1244 1962 Unknown [id number] 2.16.840.1.370858.3.579.2. 1244 1959 Unknown [id number] Unknown [facility] [id number] Unknown [facility] [employer] [id number] Unknown [id number]. 531 Unknown [id number]. 531 Social History Date Type Detail Facility Start: 06-20-2015 End: 12-05-2023 Tobacco smoking status NHIS Never smoker [facility] Work Phone: Start: 1960 Sex Assigned At Not on file [facility] Work Phone: Start: 06-20-2015 End: 12-05-2023 Alcohol intake Current drinker of alcohol (finding) [facility] Start: 06-20-2015 End: 12-05-2023 Alcohol intake [facility] Start: 1960 Sex Assigned At Male [facility] Start: 02-20-2023 End: 12-05-2023 Tobacco use and exposure Smokeless tobacco non-user [facility] Work Phone: Start: 09-17-2023 End: 12-05-2023 Tobacco use panel [facility] Start: 11-25-2023 End: 01-30-2024 Exposure to SARS-CoV-2 (event) Not sure [facility] Do you belong to any clubs or organizations such as zoroastrianism groups, unions, fraternal or athletic groups, or school groups? Yes [facility] Are you now , , , , never or living with a partner? [facility] How often to you hav e a drink containing alcohol? 2-4 times a month [facility] How many standard dr inks containing alcohol do you have on a typical day? 5 or 6 [facility] How often do you hav e 6 or more drinks on 1 occasion? Never [facility] How hard is it for y ou to pay for the very basics like food, housing, medical care, and heating Not hard at all [facility] Do you feel stress - tense, restless, nervous, or anxious, or unable to sleep at night because your mind is troubled all the time - these days [OSQ] Not at all [facility] (I/We) worried wheth er (my/our) food would run out before (I/we) got money to buy more. Never true [facility] In the past 12 month s, was there a time when you were not able to pay the mortgage or rent on time? No [facility] Start: 02-20-2023 Alcohol Comment 2-4 times a month NO [facility] Medical Equipment Procedure Code Equipment Code Equipment Origin al Text Equipment Identifier Dates Icm Reve[employer]q - [id number] Start: 03-03-2015 [employer]q - [id number], [id number] FDA Start: 08-20-2018 1 each by Other route if needed. Start: 08-23-2022 History of Present illness Narrative 03-29-2024 Martina Eden, DO - 03/29/2024 12:42 PM Garry Eden, DO - 03/26/2024 3:30 PM EST Note Date & Type Note Facility 03-29-2024 History of Presen t illness Narrative Associated Problem(s): Type 2 diabetes mellitus without complication (CMS/[facility]) During the appointment today all pertinent labs, imaging, health maintenance, and glucose readings were reviewed. Encouraged to check blood glucose throughout the day with some fasting and some PP readings. They are to bring their glucose meter/cgm in to all appointments. All of the patients questions, treatment options, and current care plan and goals were discussed. A copy of this along with pertinent instructions were given to the patient at the end of the appointment. The patient voices understanding of all of this and is to call in between appointments if they have any problems or questions. Clark Spangler is doing very well and encouraged on this. , Will stay on current medications. Images from the original note were not included. Clark Spangler is a 63 y.o. male presents with chief complaint of Diabetes HPI: Diabetes Mellitus Follow-up: Clark Spangler is here for follow-up evaluation of diabetes mellitus. The initial diagnosis of diabetes was made in 2005 Diabetes complications: Glaucoma, cataracts He has been checking his blood glucose 3-4 times a week- mostly in the morning on occasion afternoon. Last A1c: 7.0 (09/18/23) Last eye exam: 04/17/2021- 2023 [facility] [place] Current concerns include: Bg have been higher than normal, having more sandwiches in the middle of the day, and weather has been too cold to exercise. Forgot meter Mornings: 125-140 Afternoon: 150-155 Diet: limiting carbs and sweets Drinks: water, black coffee, diet pop- rare Exercise: None; just work Hypoglycemia: None Diabetes Pertinent negatives for diabetes include no chest pain, no fatigue, no polydipsia, no polyphagia and no polyuria. SUBJECTIVE: PROBLEM LIST SOCIAL ALLERGIES: Patient Active Problem List Diagnosis Essential hypertension (CMS/HCC) CRESCENCIO (obstructive sleep apnea) Paroxysmal atrial fibrillation (CMS/HCC) Pure hypercholesterolemia (CMS/HCC) Class 2 severe obesity due to excess calories with serious comorbidity and body mass index (BMI) of 35.0 to 35.9 in adult (CMS/HCC) Type 2 diabetes mellitus without complication (CMS/HCC) Social History Tobacco Use Smoking status: Never Smokeless tobacco: Never Substance Use Topics Alcohol use: Yes Comment: 2-4 times a month Drug use: Never No Known Allergies Synopsis SmartLink 03/26/2024 15:36 01/13/2024 00:00 Antidiabetic medications Empagliflozin 25 mg q AM PO 25 mg q AM PO metFORMIN HCl TAKE 1 TABLET IN THE MORNING AND 1 TABLET IN THE EVENING WITH MEALS (1000 MG TABS) TAKE 1 TABLET IN THE MORNING AND 1 TABLET IN THE EVENING WITH MEALS (1000 MG TABS) Pioglitazone HCl 30 mg Daily PO -Discontinued (Reorder) Pioglitazone HCl 30 mg Daily PO 30 mg Daily PO Semaglutide 2 mg q7 days SC (8 MG/3ML SOPN) 2 mg q7 days SC (8 MG/3ML SOPN) Labs MHPT A1C 7.4 Outpatient prescription Medication marked as long-term The 10-year ASCVD risk score (Mohit LEE, et al., 2019) is: 11.3%* Values used to calculate the score: Age: 63 years Sex: Male Is Non- : No Diabetic: Yes Tobacco smoker: No Systolic Blood Pressure: 122 mmHg Is BP treated: Yes HDL Cholesterol: 74 mg/dL* Total Cholesterol: 152 mg/dL* * - Cholesterol units were assumed for this score calculation REVIEW OF SYMPTOMS: Review of Systems Constitutional: Negative for appetite change, fatigue and unexpected weight change. Eyes: Negative for visual disturbance. Respiratory: Negative for cough, shortness of breath and wheezing. Cardiovascular: Negative for chest pain, palpitations and leg swelling. Neurological: Negative for numbness. Endocrine: Negative for polydipsia, polyphagia and polyuria. OBJECTIVE: 03/26/2024 3:26 PM 11/14/2023 10:05 AM 09/18/2023 9:24 AM Vitals BMI 35.97 kg/m2 35.12 kg/m2 35.25 kg/m2 Systolic 122 116 124 Diastolic 78 80 76 Heart Rate 85 136 74 Temp 97.4 F 98.5 F 98 F Height (in) 6' 3 6' 3 6' 3 Weight (lb) 287.8 281 282 Visit Report Report Report Report Physical Exam Constitutional: General: He is not in acute distress. Appearance: Normal appearance. He is obese. Cardiovascular: Rate and Rhythm: Normal rate and regular rhythm. Heart sounds: No murmur heard. No friction rub. No gallop. Pulmonary: Breath sounds: Normal breath sounds. No wheezing, rhonchi or rales. Musculoskeletal: General: No swelling. Neurological: Mental Status: He is alert. ASSESSMENT AND PLAN: Problem List Items Addressed This Visit Essential hypertension (CMS/HCC) - Primary CRESCENCIO (obstructive sleep apnea) Paroxysmal atrial fibrillation (CMS/HCC) Pure hypercholesterolemia (CMS/HCC) Class 2 severe obesity due to excess calories with serious comorbidity and body mass index (BMI) of 35.0 to 35.9 in adult ([facility]) Type 2 diabetes mellitus without complication ([facility]) During the appointment today all pertinent labs, imaging, health maintenance, and glucose readings were reviewed. Encouraged to check blood glucose throughout the day with some fasting and some PP readings. They are to bring their glucose meter/cgm in to all appointments. All of the patients questions, treatment options, and current care plan and goals were discussed. A copy of this along with pertinent instructions were given to the patient at the end of the appointment. The patient voices understanding of all of this and is to call in between appointments if they have any problems or questions. Clark Spangler is doing very well and encouraged on this. , Will stay on current medications. Relevant Orders POCT glycosylated hemoglobin (Hb A1C) docked device (Completed) Microalbumin / creatinine urine ratio Other Visit Diagnoses Sinus tachycardia Relevant Medications metoprolol succinate XL (Toprol-XL) 25 MG 24 hr tablet Preventative health care Relevant Orders Comprehensive metabolic panel Lipid panel TSH CBC and differential Screening for prostate cancer Relevant Orders PSA Follow up in about 4 months (around 07/25/2024) for Recheck. Patient's Medications New Prescriptions No medications on file Previous Medications APIXABAN (ELIQUIS) 5 MG TABLET Take 1 tablet (5 mg) by mouth in the morning and 1 tablet (5 mg) before bedtime. ASCORBIC ACID (VITAMIN C) 500 MG CHEWABLE TABLET Chew 1 tablet 1 (one) time each day at the same time. ATORVASTATIN (LIPITOR) 40 MG TABLET Take 1 tablet (40 mg) by mouth in the morning. BLOOD GLUCOSE MONITORING SUPPL (CONTOUR NEXT GEN MONITOR) W/DEVICE KIT Apply 1 Device topically in the morning. CONTOUR NEXT TEST TEST STRIP 1 each by Other route if needed. JARDIANCE 25 MG TAKE 1 TABLET IN THE MORNING LISINOPRIL 10 MG TABLET Take 1 tablet (10 mg) by mouth Daily METFORMIN (GLUCOPHAGE) 1000 MG TABLET TAKE 1 TABLET IN THE MORNING AND 1 TABLET IN THE EVENING WITH MEALS MULTIPLE VITAMIN (MULTIVITAMIN) CAPSULE Take 1 capsule by mouth Daily PIOGLITAZONE (ACTOS) 30 MG TABLET Take 1 tablet (30 mg) by mouth Daily SEMAGLUTIDE, 2 MG/DOSE, (OZEMPIC, 2 MG/DOSE,) 8 MG/3ML SOLUTION PEN-INJECTOR Inject 2 mg under the skin every 7 (seven) days SILDENAFIL (VIAGRA) 50 MG TABLET Take 1 tablet (50 mg) by mouth if needed for erectile dysfunction Modified Medications Modified Medication Previous Medication METOPROLOL SUCCINATE XL (TOPROL-XL) 25 MG 24 HR TABLET metoprolol succinate XL (Toprol-XL) 25 MG 24 hr tablet Take 1 tablet (25 mg) by mouth Daily Take 1 tablet (25 mg) by mouth Daily Discontinued Medications No medications on file I have reviewed and reconciled the history and medication list with the patient today. documented in this encounter [facility] History of Present illness Narrative 01-30-2024 Vicki Thurman MD - 01/30/2024 10:00 AM EDT Note Date & Type Note Facility 01-30-2024 History of Present illness Narrative Subjective Clark Spangler is a 63 y.o. male Chief Complaint Follow-up HPI Patient is here for follow-up continue management for recent presentation with atrial flutter, hypertension, hyperlipidemia. He had an ablation at [facility] 7 years ago. He presented with his recurrence few weeks ago and I did proceed with cardioversion which was successful. Since then the patient reports he is feeling well. He denies any cardiac complaint. He is compliant with his medication. Assessment 1. Atrial fibrillation/flutter with remote ablation 7 years ago with recent recurrence. He had a cardioversion which was successful. He remained in normal sinus rhythm 2. Essential hypertension 3. Hyperlipidemia 4. Diabetes mellitus 5. Chronically anticoagulated and well-tolerated 6. BMI of 35 7. Patient denies tobacco alcohol or recreational drug use 8. Patient denies classic sleep apnea symptoms Plan 1. I advised him to continue with the present medical regimen. We discussed the natural history of atrial fibrillation/flutter and the possibility of recurrence. We discussed in the future if he had a recurrence we will consider antiarrhythmic or redo ablation 2. The patient was counseled regarding losing weight, exercise and dietary modification 3. I advised him to have his girlfriend monitor his sleep pattern to see if he had any signs of sleep apnea 4. I discussed with him the relationship between obesity and atrial fibrillation 5. We discussed risk, benefits alternative anticoagulation 6. Will see him back in 6 months we will plan to repeat his EKG Review of Systems All other systems reviewed and are negative. Vitals: 01/30/24 0943 BP: 146/86 BP Location: Right arm Patient Position: Sitting Pulse: 81 Weight: 130 kg (287 lb) Height: 1.905 m (6' 3 ) EKG done in office today Objective Physical Exam Constitutional: Appearance: Normal appearance. HENT: Nose: Nose normal. Neck: Vascular: No carotid bruit. Cardiovascular: Rate and Rhythm: Normal rate. Pulses: Normal pulses. Heart sounds: Normal heart sounds. Pulmonary: Effort: Pulmonary effort is normal. Abdominal: General: Bowel sounds are normal. Palpations: Abdomen is soft. Musculoskeletal: General: Normal range of motion. Cervical back: Normal range of motion. Right lower leg: No edema. Left lower leg: No edema. Skin: General: Skin is warm and dry. Neurological: General: No focal deficit present. Mental Status: He is alert. Psychiatric: Mood and Affect: Mood normal. Behavior: Behavior normal. Thought Content: Thought content normal. Judgment: Judgment normal. Allergies Patient has no known allergies. Current Medications Current Outpatient Medications: apixaban (Eliquis) 5 mg tablet, Take 1 tablet (5 mg) by mouth twice a day., Disp: , Rfl: atorvastatin (Lipitor) 40 mg tablet, Take 1 tablet (40 mg) by mouth once daily., Disp: , Rfl: Jardiance 25 mg, Take 1 tablet (25 mg) by mouth once daily in the morning. Take before meals., Disp: , Rfl: lisinopril 10 mg tablet, Take 1 tablet (10 mg) by mouth once daily., Disp: , Rfl: metFORMIN (Glucophage) 1,000 mg tablet, Take 1 tablet (1,000 mg) by mouth 2 times daily (morning and late afternoon)., Disp: , Rfl: metoprolol succinate XL (Toprol-XL) 25 mg 24 hr tablet, Take 1 tablet (25 mg) by mouth once daily., Disp: , Rfl: Ozempic 2 mg/dose (8 mg/3 mL) pen injector, Inject 2 mg under the skin once a week., Disp: , Rfl: pioglitazone (Actos) 30 mg tablet, Take 1 tablet (30 mg) by mouth once daily., Disp: , Rfl: Assessment/Plan 1. Atrial flutter, unspecified type (Multi) Follow Up In Cardiology 2. Hyperlipidemia, unspecified hyperlipidemia type 3. Essential hypertension 4. Anticoagulated 5. BMI 35.0-35.9,adult 6. Never smoked any substance Scribe Attestation By signing my name below, I, Nayeli Elizalde LPN , Dilcia attest that this documentation has been prepared under the direction and in the presence of Vicki Thurman MD. Provider Attestation - Scribe documentation All medical record entries made by the Scribe were at my direction and personally dictated by me. I have reviewed the chart and agree that the record accurately reflects my personal performance of the history, physical exam, discussion and plan. documented in this encounter [facility] Work Phone: Instructions 01-30-2024 Patient Instructions Note Date & Type Note Facility 01-30-2024 Instructions Nayeli Bueno LPN - 01/30/2024 10:00 AM EDT Please bring all medicines, vitamins, and herbal supplements with you when you come to the office. Prescriptions will not be filled unless you are compliant with your follow up appointments or have a follow up appointment scheduled as per instruction of your physician. Refills should be requested at the time of your visit. BMI was above normal measurement. Current weight: 130 kg (287 lb) Weight change since last visit (-) denotes wt loss 0 lbs Weight loss needed to achieve BMI 25: 87.4 Lbs Weight loss needed to achieve BMI 30: 47.5 Lbs Provided instructions on dietary changes Provided instructions on exercise. 6 months with ekg documented in this encounter [facility] Work Phone: Procedure note 12-05-2023 Note Date & Type Note Facility 12-05-2023 Procedure note [facility] History of Present illness Narrative 12-05-2023 Vicki Thurman MD - 12/05/2023 10:00 AM EDT Note Date & Type Note Facility 12-05-2023 History of Present illness Narrative Cardiology Consultation- New Consult Reason for referral: Sinus tachycardia/atrial flutter HPI: Clark Spangler is a 63 y.o. male white male with history of atrial fibrillation/flutter. He reports he underwent ablation at [facility] 7 years ago. He report 1 previous recurrence shortly after his ablation but none recently when he was noted to be tachycardic. This is minimally symptomatic. He denies complaint of chest pain, palpitation, lightheadedness, dizziness or syncope. He reports he is active. He reports his previous cardiac workup at [facility] all suggested normal his structural heart. I do have bits and pieces of his previous workup that I was able to review through [employer] system. Today in the office he appears to be in atrial flutter with rapid ventricular rate. He is compliant with his Eliquis. Assessment 1. Atrial fibrillation/flutter with remote ablation 7 years ago with recent recurrence over the last 2 weeks. He is currently in atrial flutter with 221 AV block. He is compliant with his Eliquis 2. Essential hypertension 3. Hyperlipidemia 4. Diabetes mellitus 5. Chronically anticoagulated and well-tolerated 6. BMI of 35 7. Patient denies tobacco alcohol or recreational drug use 8. Patient denies classic sleep apnea symptoms Plan 1. We discussed treatment option at great length. The patient is tachycardic but appears not very symptomatic. His atrial arrhythmia of 2 weeks vacation. Clearly I was concerned about tachycardia induced cardiomyopathy. We discussed treatment option including antiarrhythmic, ablation and a cardioversion. Following lengthy discussion the patient elected to proceed with cardioversion. Risk, benefit alternative reviewed. I told the patient had 50-50 chance to stay in the rhythm and on the long run. If he had any recurrence we will consider antiarrhythmic or redo ablation 2. The patient was counseled regarding losing weight, exercise and dietary modification 3. Follow-up after cardioversion is Past Medical History: He has no past medical history on file. Surgical History: He has a past surgical history that includes Total hip arthroplasty (Left); Atrial ablation surgery; Cataract extraction (Bilateral); and Colonoscopy (2018). Family History: Family History Problem Relation Name Age of Onset Cancer Mother Heart attack Father Social History: Social History Tobacco Use Smoking status: Never Smokeless tobacco: Never Substance Use Topics Alcohol use: Yes Alcohol/week: 6.0 standard drinks of alcohol Types: 6 Cans of beer per week Allergies: Patient has no known allergies. Current Medications: Current Outpatient Medications: apixaban (Eliquis) 5 mg tablet, Take 1 tablet (5 mg) by mouth twice a day., Disp: , Rfl: atorvastatin (Lipitor) 40 mg tablet, Take 1 tablet (40 mg) by mouth once daily., Disp: , Rfl: Jardiance 25 mg, Take 1 tablet (25 mg) by mouth once daily in the morning. Take before meals., Disp: , Rfl: lisinopril 10 mg tablet, Take 1 tablet (10 mg) by mouth once daily., Disp: , Rfl: metFORMIN (Glucophage) 1,000 mg tablet, Take 1 tablet (1,000 mg) by mouth 2 times daily (morning and late afternoon)., Disp: , Rfl: metoprolol succinate XL (Toprol-XL) 25 mg 24 hr tablet, Take 1 tablet (25 mg) by mouth once daily., Disp: , Rfl: Ozempic 2 mg/dose (8 mg/3 mL) pen injector, Inject 2 mg under the skin once a week., Disp: , Rfl: pioglitazone (Actos) 30 mg tablet, Take 1 tablet (30 mg) by mouth once daily., Disp: , Rfl: Vitals: Vitals: 12/05/23 0950 BP: 118/80 BP Location: Right arm Patient Position: Sitting Pulse: (!) 135 Weight: 130 kg (287 lb) Height: 1.905 m (6' 3 ) EKG done in office today Review of Systems All other systems reviewed and are negative. Objective Physical Exam Constitutional: Appearance: Normal appearance. HENT: Nose: Nose normal. Neck: Vascular: No carotid bruit. Cardiovascular: Rate and Rhythm: Tachycardia present. Pulses: Normal pulses. Heart sounds: Normal heart sounds. Pulmonary: Effort: Pulmonary effort is normal. Abdominal: General: Bowel sounds are normal. Palpations: Abdomen is soft. Musculoskeletal: General: Normal range of motion. Cervical back: Normal range of motion. Right lower leg: No edema. Left lower leg: No edema. Skin: General: Skin is warm and dry. Neurological: General: No focal deficit present. Mental Status: He is alert. Psychiatric: Mood and Affect: Mood normal. Behavior: Behavior normal. Thought Content: Thought content normal. Judgment: Judgment normal. Assessment and Plan: 1. Atrial flutter, unspecified type (Multi) 2. Essential hypertension 3. Hyperlipidemia, unspecified hyperlipidemia type 4. Anticoagulated 5. BMI 35.0-35.9,adult 6. Never smoked any substance Scribe Attestation By signing my name below, Joselin Gi Villanueva RN , Scribe attest that this documentation has been prepared under the direction and in the presence of Vicki Thurman MD. Provider Attestation - Scribe documentation All medical record entries made by the Scribe were at my direction and personally dictated by me. I have reviewed the chart and agree that the record accurately reflects my personal performance of the history, physical exam, discussion and plan. documented in this encounter [facility] Work Phone: Instructions 12-05-2023 Patient Instructions Note Date & Type Note Facility 12-05-2023 Instructions Gi Solis RN - 12/05/2023 10:00 AM EDT Please bring all medicines, vitamins, and herbal supplements with you when you come to the office. Prescriptions will not be filled unless you are compliant with your follow up appointments or have a follow up appointment scheduled as per instruction of your physician. Refills should be requested at the time of your visit. BMI was above normal measurement. Current weight: 130 kg (287 lb) Weight change since last visit (-) denotes wt loss 287 lbs Weight loss needed to achieve BMI 25: 87.4 Lbs Weight loss needed to achieve BMI 30: 47.5 Lbs Provided instructions on dietary changes Provided instructions on exercise. documented in this encounter [facility] Work Phone: Evaluation note Note Date & Type Note Facility Evaluation note No assessment information availa [facility] Work Phone: Evaluation note Note Date & Type Note Facility Evaluation note Diagnosis Atrial flutter, unspecified type (Multi) Hyperlipidemia, unspecified hyperlipidemia type Essential hypertension Unspecified essential hypertension Anticoagulated Encounter for long-term (current) use of anticoagulants BMI 35.0-35.9,adult Never smoked any substance documented in this encounter [facility] Work Phone: Evaluation note Note Date & Type Note Facility Evaluation note Diagnosis Well adult exam- Primary Routine general medical examination at a health care facility Type 2 diabetes mellitus without complication, unspecified whether termite inspector insulin use (CMS/HCC) Paroxysmal atrial fibrillation (CMS/HCC) Atrial fibrillation Screening for prostate cancer Special screening for malignant neoplasm of prostate CRESCENCIO (obstructive sleep apnea) Obstructive sleep apnea (adult) (pediatric) Essential hypertension (CMS/HCC) Unspecified essential hypertension Severe obesity (BMI 35.0-39.9) with comorbidity (CMS/HCC) Pure hypercholesterolemia (CMS/HCC) Pure hypercholesterolemia Gastroesophageal reflux disease without esophagitis Esophageal reflux CRESCENCIO (obstructive sleep apnea)- Primary Obstructive sleep apnea (adult) (pediatric) Type 2 diabetes mellitus without complication, without long-term current use of insulin (CMS/HCC) Essential hypertension (CMS/HCC) Unspecified essential hypertension Paroxysmal atrial fibrillation (CMS/HCC) Atrial fibrillation Pure hypercholesterolemia (CMS/HCC) Pure hypercholesterolemia Class 2 severe obesity due to excess calories with serious comorbidity and body mass index (BMI) of 35.0 to 35.9 in adult (CMS/HCC) Essential hypertension (CMS/HCC)- Primary Unspecified essential hypertension Type 2 diabetes mellitus without complication, without long-term current use of insulin (CMS/HCC) Sinus tachycardia Other specified cardiac dysrhythmias Paroxysmal atrial fibrillation (CMS/HCC) Atrial fibrillation CRESCENCIO (obstructive sleep apnea) Obstructive sleep apnea (adult) (pediatric) Pure hypercholesterolemia ([facility]/HCC) Pure hypercholesterolemia Preventative health care Routine general medical examination at a health care facility Screening for prostate cancer Special screening for malignant neoplasm of prostate Class 2 severe obesity due to excess calories with serious comorbidity and body mass index (BMI) of 35.0 to 35.9 in adult (CMS/HCC) documented in this encounter [facility] Evaluation note Note Date & Type Note Facility Evaluation note Diagnosis Atrial flutter, unspecified type (Multi) Essential hypertension Unspecified essential hypertension Hyperlipidemia, unspecified hyperlipidemia type Anticoagulated Encounter for long-term (current) use of anticoagulants BMI 35.0-35.9,adult Never smoked any substance documented in this encounter [facility] Work Phone: Advance Directives Latest Code Status on File Code Status Date Activated Date Inactivated Comments Full Code 08/20/2018 3:06 PM Full Code 03/03/2015 11:38 AM 03/06/2015 1:39 PM Latest Code Status on File Code Status Date Activated Date Inactivated Comments Full Code 08/20/2018 3:06 PM Code Status History Code Status Date Activated Date Inactivated Comments Full Code 03/03/2015 11:38 AM 03/06/2015 1:39 PM Advance Directive Response Recorded Date/ Time Advance Directives No January 20, 2017 6:27am Summary Purpose Family History No Family History Records FoundNo Family History Records FoundNo Family History Records FoundNo Family History Records FoundNo Family History Records FoundNo Family History Records Found Chief Complaint and Reason for Visit Chief Complaint r00.0 Chief Complaint r00.0 I48.92 Reason for Referral Specialty Diagnoses / Procedures Referred By Contac t Referred To Contact Diagnoses Atrial flutter, unspecified type (Multi) Procedures ECG 12 Lead Vicki Thurman MD [address] [facility] 2, [place] [address] [place] [phone] Referral ID Status Reason Start Date Expiration Date V isits Requested Visits Authorized [id number] Authorized 01/30/2024 01/29/2025 1 1 Specialty Diagnoses / Procedures Referred By Contac t Referred To Contact Cardiology Diagnoses Essential hypertension Procedures Follow Up In Cardiology Vicki Thurman MD [address] [facility] 2, [place] [address] [place] [phone] Vicki Thurman MD [address], [address] [place] [address] Referral ID Status Reason Start Date Expiration Date V isits Requested Visits Authorized [id number] Authorized 01/30/2024 01/29/2025 1 1 Specialty Diagnoses / Procedures Referred By Contac t Referred To Contact Cardiology Diagnoses Atrial flutter, unspecified type (Multi) Procedures Cardioversion External Cardioversion External Vicki Thurman MD [address] [facility] 2, [place] [address] [place] [id number] Referral ID Status Reason Start Date Expiration Date V isits Requested Visits Authorized [id number] Pending Review 12/05/2023 12/04/2024 1 1 Specialty Diagnoses / Procedures Referred By Marie guardado Referred To Contact Cardiology Diagnoses Atrial flutter, unspecified type (Multi) Procedures Follow Up In Cardiology Vicki Thurman MD [address] [facility] 2, [address] [place] [address] Vicki Thurman MD [address] [facility] 2, [address] [place] [address] Referral ID Status Reason Start Date Expiration Date V isits Requested Visits Authorized [id number] Authorized 12/05/2023 12/04/2024 1 1 Referral ID Status Reason Start Date Expiration Date V isits Requested Visits Authorized [id number] Authorized 12/05/2023 12/04/2024 1 1 Additional Source Comments Care Teams (unrecognized sec tion and content) Electrical Mechanic Relationship Specialty Start Date End Date Martina Eden DO PCP - General Family Medicine 01/13/15 Shai Champagne MD [address] [place] [address] (Fax) PCP - Referring 1 Cardiovascular Medicine 03/03/15 Panchito Wilkinson MD [address] [place] [phone] PCP - Referring 2 Clinical Cardiac Electrophysiology 08/19/18 Electrical Mechanic Relationship Specialty Start Date End Date Martina Eden DO PCP - General Family Medicine 01/13/15 Shai Champagne MD [address] [place] [address] (Fax) PCP - Referring 1 Cardiovascular Medicine 03/03/15 Panchito Wilkinson MD [address] [place] [address] [phone] PCP - Referring 2 Clinical Cardiac Electrophysiology 08/19/18 Electrical Mechanic Relationship Specialty Start Date End Date Martina Eden DO PCP - General Family Medicine 01/13/15 Shai Champagne MD [address] [place] [address] PCP - Referring 1 Cardiovascular Disease 03/03/15 Panchito Wilkinson MD [address] [place] [address] [phone] PCP - Referring 2 Clinical Cardiac Electrophysiology 08/19/18 Electrical Mechanic Relationship Specialty Start Date End Date Martina Eden DO PCP - General Family Medicine 01/13/15 Shai Champagne MD [address] [place] [address] (Fax) PCP - Referring 1 Cardiovascular Disease 03/03/15 Panchito Wilkinson MD [address] [place] [address] [phone] PCP - Referring 2 Clinical Cardiac Electrophysiology 08/19/18 Team Status: Active Member Role Status Dates Martina Eden DO Primary Care Provider Active Team Status: Inactive Member Role Status Dates Martina Eden DO Primary Care Provi jayne, Attending Provider Active Start: November 27, 2023 End: November 27, 2023 Team Status: Inactive Member Role Status Dates Martina Eden DO Primary Care Provider Active Start: December 05, 2023 End: December 05, 2023 Vicki Thurman MD Attending Provid er, Referring Provider Active Start: December 05, 2023 End: December 05, 2023 Electrical Mechanic Relationship Specialty Start Date End Date Martina Eden DO [address] [place] [address] PCP - General Family Medicine 11/17/23 Electrical Mechanic Relationship Specialty Start Date End Date Martina Eden, DO [address] [place] [address] PCP - [facility] 09/19/21 Obey Martina M, DO [address] [place] [address] PCP - General Family Medicine 08/27/22 Electrical Mechanic Relationship Specialty Start Date End Date Martina Eden, DO [address] [place] [address] PCP - General Family Medicine 11/17/23 (unrecognized sect ion and content) No Status Records FoundNo Status Records FoundNo Status Records FoundNo Status Records FoundNo Status Records FoundNo Status Records Found INFORMATION SOURCE (unrecogn ized section and content) DATE CREATED AUTHOR 03/13/2022 [facility] DATE CREATED AUTHOR AUTHOR'S ORGANIZ ATION 07/22/2022 [facility] DATE CREATED AUTHOR AUTHOR'S ORGANIZ ATION 02/11/2023 [facility] DATE CREATED AUTHOR AUTHOR'S ORGANIZ ATION 11/19/2023 [facility] EPIC DATE CREATED AUTHOR AUTHOR'S ORGANIZ ATION 01/08/2024 [facility] DATE CREATED AUTHOR AUTHOR'S ORGANIZ ATION 02/03/2024 [facility] Goals (unrecognized section and content) Goals may be documented in a n alternate sectionGoals may be documented in an alternate section Reason for Visit (unrecogniz ed section and content) Reason Comments Follow-up 2-3 months post dcc Specialty Diagnoses / Procedures Referred By Contac t Referred To Contact Cardiology Diagnoses Atrial flutter, unspecified type (Multi) Procedures Follow Up In Cardiology Vicki Thurman MD [address] [facility] 2, [address] [address] Vikci Thurman MD [address] [place] [address] 2, [place] [phone] Referral ID Status Reason Start Date Expiration Date V isits Requested Visits Authorized [id number] Authorized 12/05/2023 12/04/2024 1 1 Reason Comments Diabetes Reason Comments New Patient Visit [id number] [id number] tach Specialty Diagnoses / Procedures Referred By Contac t Referred To Contact Diagnoses Atrial flutter, unspecified type (Multi) Procedures ECG 12 Lead Vicki Thurman MD [address] [place] [address] [address], [address] [address] Referral ID Status Reason Start Date Expiration Date V isits Requested Visits Authorized [id number] Authorized 12/05/2023 12/04/2024 1 1 FOR RECORDS PERTAINING TO PATIENTS WHO ARE OR HAVE BEEN ENROLLED IN A CHEMICAL DEPENDENCY/SUBSTANCEABUSE PROGRAM, SOME INFORMATION MAY BE OMITTED. This clinical summary was aggregated from multiple sources. Caution should be exercised in using it in the provision of clinical care. This summary normalizes information from multiple sources, and as a consequence, information in this document may materially change the coding, format and clinical context of patient data. In addition, data may be omitted in some cases. CLINICAL DECISIONS SHOULD BE BASED ON THE PRIMARY CLINICAL RECORDS. [employer] provides no warranty or guarantee of the accuracy or completeness of information in this document.
[2024-04-16 08:48] LABS: Basophils Percent Auto 0.5 % (0.2-2.0); Eosinophils Absolute Auto 0.2 10^3/uL (0.0-0.7); Eosinophils Percent Auto 3.6 % (0.9-7.0); Hematocrit 43.5 % (42.0-54.0); Hemoglobin 14.1 g/dL (14.0-18.0); Immature Granulocytes Abs Auto 0.05 10^3/uL (0.00-0.03); Immature Granulocytes Pct Auto 0.8 % (0.0-0.5); Lymphocytes Absolute Auto 2.4 10^3/uL (1.2-3.8); Lymphocytes Percent Auto 39.2 % (20.5-60.0); Mean Corpuscular HGB Conc 32.4 g/dL (29.9-35.2); Mean Corpuscular Hemoglobin 29.7 pg (25.9-34.0); Mean Corpuscular Volume 91.8 fL (80.0-94.0); Mean Platelet Volume 10.2 fL (9.5-13.5); Monocytes Absolute Auto 0.6 10^3/uL (0.3-0.8); Monocytes Percent Auto 9.1 % (1.7-12.0); Neutrophils Absolute Auto 2.9 10^3/uL (1.4-6.5); Neutrophils Percent Auto 46.8 % (43.0-75.0); Platelet Count 224 10^3/uL (150-450); Red Blood Count 4.74 10^6/uL (4.70-6.10); Red Cell Distribution Width 13.4 % (11.0-15.0); White Blood Count 6.1 10^3/uL (4.0-11.0)
[2024-04-16 09:23] LABS: Microalbumin Urine Random <1.3 mg/dL (<=30.0)
[2024-04-16 09:54] LABS: Alanine Aminotransferase 21 U/L (16-63); Albumin Globulin Ratio 1.3; Albumin Level 3.8 g/dL (3.4-5.0); Alkaline Phosphatase 60 U/L (46-116); Aspartate Amino Transferase 15 U/L (15-37); BUN Creatinine Ratio 26.6; Bilirubin Total 0.4 mg/dL (0.2-1.0); Calcium 8.9 mg/dL (8.5-10.1); Carbon Dioxide 28.4 mmol/L (21.0-32.0); Chloride 106 mmol/L (98-107); Estimated GFR (African America >60 (>=60 mL/min/1.73m^2); Estimated GFR (Non-African Ame >60 (>=60 mL/min/1.73m^2); Globulin 2.9 g/dL; Glucose 126 mg/dL (74-106); Potassium 4.4 mmol/L (3.5-5.1); Sodium 142 mmol/L (136-145); Total Protein 6.7 g/dL (6.4-8.2); Triglycerides 40 mg/dL (<=150)
[2024-04-16 09:55] LABS: Chol HDL Ratio 2.2; Cholesterol 154 mg/dL (<=200); HDL Cholesterol 69 mg/dL (40-60); Thyroid Stimulating Hormone 2.494 uIU/mL (0.358-3.740)
[2024-04-16 09:58] LABS: Prostate Specific Antigen Scrn 3.08 ng/mL (<=4.00)
== END 2024-04-16 08:22 | disposition home or self-care (01) ==
LOC: LAB 08:23
PROVIDERS: PCP Family Medicine; Visit Provider Family Medicine
DX: Z00.00 Encounter for general adult medical examination without abnormal findings (principal); E11.9 Type 2 diabetes mellitus without complications; Z12.5 Encounter for screening for malignant neoplasm of prostate
CPT/HCPCS: 36415; 80053; 80061; 82043; 82570; 84443; 85025; G0103